=== PATIENT | female | born 1980 | race Caucasian/White ===

== ENCOUNTER 2016-07-25 15:13 | Emergency (ER) | payer MEDICAID ==
[2016-07-25] MEDS ORDERED: Ondansetron 4 MG/2 ML SDV IVPUSH ONE ×2 (15:32→16:40)
[2016-07-25] MEDS ORDERED: Sodium Chloride 0.9% 10 ML Syringe FLUSH PRN ×2 (15:32→15:42)
[2016-07-25] MEDS ORDERED: Sodium Chloride 0.9% 1,000 ML IV STA (15:32)
[2016-07-25] MEDS ORDERED: HYDROmorphone 1 MG/ML Syringe IVPUSH ONE ×2 (15:34→15:55)
[2016-07-25] MEDS ORDERED: Diatrizoate Meglumine/Diatrizoate Sodium 37% 120 ML Bottle PO ONE (15:42)
[2016-07-25] MEDS ORDERED: Iopamidol 612 MG/ML 150 ML Bottle IVPUSH ONE (15:42)
--- NOTE | 2016-07-25 16:57 | EDM.PDOC ---
ED HPI GENERAL MEDICAL PROBLEM - General Chief Complaint: Abdominal Pain Stated Complaint: ABDOMINAL PAIN Time Seen by Provider: 07/25/16 15:19 Source of Information: Reports: Patient History Limitations: Reports: No Limitations - History of Present Illness INITIAL COMMENTS - FREE TEXT/NARRATIVE: The patient presents with severe, sharp left sided abdominal pain. This started about an hour ago. She has nausea, vomiting and chills but no fever. She felt good today and had a normal bowel movement today. She still has a gallbladder but she has no appendix. She had a tubal ligation also. She has no chest pain or shortness of breath. She has no dysuria or diarrhea. Onset: Sudden Duration: Hour(s): (1) Location: Reports: Abdomen (left upper and lower abdomen) Quality: Reports: Sharp Severity: Severe Improves with: Reports: None Worsens with: Reports: None Associated Symptoms: Reports: Fever/Chills, Nausea/Vomiting. Denies: Cough, Shortness of Breath Left Abdominal Pain Score (Numeric/FACES): 10 - Related Data Allergies Allergy/AdvReac Type Severity Reaction Status Date / Time acetaminophen Allergy Hives Verified 07/25/16 15:22 amoxicillin Allergy Respiratory Verified 07/25/16 15:22 Depression Penicillins Allergy Anaphylactic Verified 07/25/16 15:22 Shock Home Meds: Home Meds lamoTRIgine [LaMICtal XR] 100 mg PO BID 05/20/14 [History] Tamsulosin HCl [Flomax] 0.4 mg PO DAILY #10 cap.er.24h 07/25/16 [Rx] oxyCODONE 5 mg PO Q6H PRN #20 tablet 07/25/16 [Rx] Past Medical History Other OB/BYN History: ovarian cyst Neurological History: Reports: Seizure - Past Surgical History Other Female Surgeries/Procedures: stent placement in ureter Social & Family History - Tobacco Use Smoking Status *Q: Current Every Day Smoker Years of Tobacco use: 10 Packs/Tins Daily: 0.5 Used Tobacco, but Quit: No Second Hand Smoke Exposure: No - Caffeine Use Caffeine Use: Reports: None - Alcohol Use Days Per Week of Alcohol Use: 1 Number of Drinks Per Day: 1 Total Drinks Per Week: 1 - Recreational Drug Use Recreational Drug Use: No ED ROS GENERAL - Review of Systems Review Of Systems: See Below Constitutional: Reports: Chills. Denies: Fever HEENT: Reports: No Symptoms Respiratory: Reports: No Symptoms Cardiovascular: Reports: No Symptoms Endocrine: Reports: No Symptoms GI/Abdominal: Reports: Abdominal Pain, Nausea, Vomiting. Denies: Diarrhea : Reports: No Symptoms Musculoskeletal: Reports: No Symptoms Skin: Reports: No Symptoms ED EXAM, GI/ABD - Physical Exam Exam: See Below Exam Limited By: No Limitations General Appearance: Alert, No Apparent Distress Ears: Normal External Exam Nose: Normal Inspection Head: Atraumatic, Normocephalic Neck: Normal Inspection Respiratory/Chest: No Respiratory Distress, Lungs Clear, Normal Breath Sounds Cardiovascular: Regular Rate, Rhythm, No Edema, No Murmur GI/Abdominal: Soft, No Organomegaly, No Mass, Tenderness (Moderate generalized tenderness) Course - Vital Signs Last Recorded V/S: Last Vital Signs Temp 96.7 F 07/25/16 15:18 Pulse 89 07/25/16 15:18 Resp 28 H 07/25/16 15:18 BP 128/94 H 07/25/16 15:18 Pulse Ox 97 07/25/16 15:18 - Orders/Labs/Meds Orders: Active Orders 24 hr Category Date Time Status Peripheral IV Care [RC] . DIRECTED Care 07/25/16 15:32 Active Sodium Chloride 0.9% [Saline Flush] Med 07/25/16 15:32 Active 10 ml FLUSH ASDIRECTED PRN Sodium Chloride 0.9% [Saline Flush] Med 07/25/16 15:42 Active 10 ml FLUSH ONETIME PRN ED Antiemetic Medication Reflex [OM.PC] Stat Oth 07/25/16 15:33 Ordered Peripheral IV Insertion Adult [OM.PC] Stat Oth 07/25/16 15:32 Ordered Medication Orders Sodium Chloride (Saline Flush) 10 ml FLUSH ASDIRECTED PRN PRN Reason: Keep Vein Open Last Admin: 07/25/16 15:49 Dose: 10 ml Sodium Chloride (Saline Flush) 10 ml FLUSH ONETIME PRN PRN Reason: IV FLUSH Last Admin: 07/25/16 17:12 Dose: 10 ml Labs: Laboratory Tests 07/25/16 07/25/16 07/25/16 Range/Units 15:30 15:30 15:30 WBC 13.83 H (3.98-10.04) K/mm3 RBC 4.79 (3.98-5.22) M/mm3 Hgb 14.2 (11.2-15.7) gm/L Hct 43.0 (34.1-44.9) % MCV 89.8 (79.4-94.8) fl MCH 29.6 (25.6-32.2) pg MCHC 33.0 (32.2-35.5) g/dl RDW Std Deviation 43.0 (36.4-46.3) fL Plt Count 421 H (182-369) K/mm3 MPV 9.9 (9.4-12.3) fl Neut % (Auto) 66.2 (34.0-71.1) % Lymph % (Auto) 17.4 L (19.3-51.7) % [place] % (Auto) 12.0 (4.7-12.5) % Eos % (Auto) 3.3 (0.7-5.8) Baso % (Auto) 0.6 (0.1-1.2) % Neut # (Auto) 9.15 H (1.56-6.13) K/mm3 Lymph # (Auto) 2.41 (1.18-3.74) K/mm3 [place] # (Auto) 1.66 H (0.24-0.36) K/mm3 Eos # (Auto) 0.46 H (0.04-0.36) K/mm3 Baso # (Auto) 0.08 (0.01-0.08) K/mm3 Manual Slide Review Normal smear Sodium 142 (136-145) mEq/L Potassium 4.0 (3.5-5.1) mEq/L Chloride 105 (98-107) mEq/L Carbon Dioxide 27 (21-32) mEq/L Anion Gap 14.0 (5-15) BUN 13 (7-18) mg/dL Creatinine 1.1 H (0.55-1.02) mg/dL Est Cr Clr Drug Dosing 69.23 mL/min Estimated GFR (MDRD) 57 (>60) mL/min BUN/Creatinine Ratio 11.8 L (14-18) Glucose 114 H (74-106) mg/dL Calcium 9.4 (8.5-10.1) mg/dL Total Bilirubin 0.4 (0.2-1.0) mg/dL AST 26 (15-37) U/L ALT 61 H (14-59) U/L Alkaline Phosphatase 97 (46-116) U/L Total Protein 7.7 (6.4-8.2) g/dl Albumin 4.0 (3.4-5.0) g/dl Globulin 3.7 gm/dL Albumin/Globulin Ratio 1.1 (1-2) Lipase 100 (73-393) U/L HCG, Qual Negative (NEGATIVE) Urine Color (Yellow) Urine Appearance (Clear) Urine pH (5.0-8.0) Ur Specific [place] (1.005-1.030) Urine Protein (Negative) Urine Glucose (UA) (Negative) Urine Ketones (Negative) Urine Occult Blood (Negative) Urine Nitrite (Negative) Urine Bilirubin (Negative) Urine Urobilinogen (0.2-1.0) Ur Leukocyte Esterase (Negative) Urine RBC (0-5) /hpf Urine WBC (0-5) /hpf Ur Epithelial Cells Ur Squamous Epith Cells (0-5) /hpf Urine Bacteria (FEW) /hpf Urine Mucus (FEW) /hpf 07/25/16 Range/Units 17:25 WBC (3.98-10.04) K/mm3 RBC (3.98-5.22) M/mm3 Hgb (11.2-15.7) gm/L Hct (34.1-44.9) % MCV (79.4-94.8) fl MCH (25.6-32.2) pg MCHC (32.2-35.5) g/dl RDW Std Deviation (36.4-46.3) fL Plt Count (182-369) K/mm3 MPV (9.4-12.3) fl Neut % (Auto) (34.0-71.1) % Lymph % (Auto) (19.3-51.7) % [place] % (Auto) (4.7-12.5) % Eos % (Auto) (0.7-5.8) Baso % (Auto) (0.1-1.2) % Neut # (Auto) (1.56-6.13) K/mm3 Lymph # (Auto) (1.18-3.74) K/mm3 [place] # (Auto) (0.24-0.36) K/mm3 Eos # (Auto) (0.04-0.36) K/mm3 Baso # (Auto) (0.01-0.08) K/mm3 Manual Slide Review Sodium (136-145) mEq/L Potassium (3.5-5.1) mEq/L Chloride (98-107) mEq/L Carbon Dioxide (21-32) mEq/L Anion Gap (5-15) BUN (7-18) mg/dL Creatinine (0.55-1.02) mg/dL Est Cr Clr Drug Dosing mL/min Estimated GFR (MDRD) (>60) mL/min BUN/Creatinine Ratio (14-18) Glucose (74-106) mg/dL Calcium (8.5-10.1) mg/dL Total Bilirubin (0.2-1.0) mg/dL AST (15-37) U/L ALT (14-59) U/L Alkaline Phosphatase (46-116) U/L Total Protein (6.4-8.2) g/dl Albumin (3.4-5.0) g/dl Globulin gm/dL Albumin/Globulin Ratio (1-2) Lipase (73-393) U/L HCG, Qual (NEGATIVE) Urine Color [place] H (Yellow) Urine Appearance Cloudy H (Clear) Urine pH 6.5 (5.0-8.0) Ur Specific [place] 1.015 (1.005-1.030) Urine Protein 2+ H (Negative) Urine Glucose (UA) Negative (Negative) Urine Ketones Negative (Negative) Urine Occult Blood 3+ H (Negative) Urine Nitrite Negative (Negative) Urine Bilirubin Negative (Negative) Urine Urobilinogen 0.2 (0.2-1.0) Ur Leukocyte Esterase Negative (Negative) Urine RBC >100 H (0-5) /hpf Urine WBC 0-5 (0-5) /hpf Ur Epithelial Cells Not Reportable Ur Squamous Epith Cells 5-10 H (0-5) /hpf Urine Bacteria Few (FEW) /hpf Urine Mucus Few (FEW) /hpf Meds: Medications Generic Name Dose Route Start Last Admin Trade Name Freq PRN Reason Stop Dose Admin Sodium Chloride 10 ml 07/25/16 15:32 07/25/16 15:49 Saline Flush FLUSH 10 ml ASDIRECTED PRN Administration Keep Vein Open Sodium Chloride 10 ml 07/25/16 15:42 07/25/16 17:12 Saline Flush FLUSH 10 ml ONETIME PRN Administration IV FLUSH Discontinued Medications Generic Name Dose Route Start Last Admin Trade Name Freq PRN Reason Stop Dose Admin Diatrizoate Meglum/Diatrizoate Sod 120 ml 07/25/16 15:42 07/25/16 17:10 Gastrografin 37% PO 07/25/16 15:43 90 ml ONETIME ONE Administration Hydromorphone HCl 1 mg 07/25/16 15:34 07/25/16 15:42 Dilaudid IVPUSH 07/25/16 15:35 1 mg ONETIME ONE Administration Hydromorphone HCl 1 mg 07/25/16 15:55 07/25/16 16:47 Dilaudid IVPUSH 07/25/16 15:56 1 mg ONETIME ONE Administration Sodium Chloride 1,000 mls @ 1,000 mls/hr 07/25/16 15:32 07/25/16 15:45 Normal Saline IV 07/25/16 16:31 1,000 mls/hr .BOLUS STA Administration Iopamidol 150 ml 07/25/16 15:42 07/25/16 17:10 Isovue-300 (61%) IVPUSH 07/25/16 15:43 125 ml ONETIME ONE Administration Ketorolac Tromethamine 30 mg 07/25/16 18:15 07/25/16 18:24 Toradol IVPUSH 07/25/16 18:16 30 mg ONETIME ONE Administration Ondansetron HCl 4 mg 07/25/16 15:32 07/25/16 15:40 Zofran IVPUSH 07/25/16 15:33 4 mg ONETIME ONE Administration Ondansetron HCl 4 mg 07/25/16 16:40 07/25/16 16:44 Zofran IVPUSH 07/25/16 16:41 4 mg ONETIME ONE Administration - Re-Assessments/Exams Free Text/Narrative Re-Assessment/Exam: 07/25/16 16:57 I ordered an IV NS 1L bolus, zofran 4mg IV, dilaudid 1mg IV, labs, UA and a CT of her abdomen and pelvis. 07/25/16 18:34 Her WBC was elevated at 13.83. Her creatinine was 1.1. Her ALT was slightly elevated at 61. He HCG was negative. Her UA shows no UTI but she did have blood. Her CT shows slightly diminished enhancement of the left kidney as compared to the right side. Left ureter is mildly dilated. Both these findings are caused by an obstructing distal left ureteral stone measuring between 5 and 6mm. Small calcified gallstones. Lack of contrast within the bladder on delayed images likely representing dehydration. I gave her some toradol 30mg IV. She feels better now. I will get her on something for pain and have her follow up with urology. Departure - Departure Time of Disposition: 18:40 Disposition: Home, Self-Care 01 Condition: good Clinical Impression: Ureteric colic, Renal colic on left side, Kidney stone on left side, Ureteral calculus, Gall stones - Discharge Information Prescriptions: Tamsulosin HCl [Flomax] 0.4 mg PO DAILY #10 cap.er.24h oxyCODONE 5 mg PO Q6H PRN #20 tablet PRN Reason: Pain Referrals: Mamadou Franklin MD [Physician] - 1 Week Forms: ED Department Discharge Additional Instructions: Drink plenty of fluids. Take the flomax daily. Take the oxycodone as needed for pain. Take motrin or aleve for pain also. Follow up with Dr Franklin. Please return if you are worse. - My Orders Last 24 Hours: My Active Orders 07/25/16 15:32 Peripheral IV Care [RC] . DIRECTED Sodium Chloride 0.9% [Saline Flush] 10 ml FLUSH ASDIRECTED PRN Peripheral IV Insertion Adult [OM.PC] Stat 07/25/16 15:33 ED Antiemetic Medication Reflex [OM.PC] Stat 07/25/16 15:42 Sodium Chloride 0.9% [Saline Flush] 10 ml FLUSH ONETIME PRN - Assessment/Plan Last 24 Hours: My Active Orders 07/25/16 15:32 Peripheral IV Care [RC] . DIRECTED Sodium Chloride 0.9% [Saline Flush] 10 ml FLUSH ASDIRECTED PRN Peripheral IV Insertion Adult [OM.PC] Stat 07/25/16 15:33 ED Antiemetic Medication Reflex [OM.PC] Stat 07/25/16 15:42 Sodium Chloride 0.9% [Saline Flush] 10 ml FLUSH ONETIME PRN
--- NOTE | 2016-07-25 17:38 | CT ---
CT abdomen and pelvis Technique: Multiple axial sections were obtained from above the dome of the diaphragm inferiorly through the pubic symphysis. Delayed images were also obtained through the bladder. Comparison: Previous CT abdomen and pelvis exam of 12/05/09. Findings: Very small nonobstructing stone is noted within the right kidney. Left kidney shows slightly diminished enhancement as compared to the right side. Right ureter is mildly prominent. Calcification is seen within the distal right ureter measuring about 5-6 mm which is compatible with an obstructing ureteral calculus. Delayed images shows no contrast within the bladder compatible with dehydration. Visualized lung bases show nothing acute. Liver and spleen appear within normal limits. Small calcified gallstones are seen within the gallbladder. Adrenal glands show no nodule. Pancreas is within normal limits. Aorta shows no aneurysmal dilatation. No retroperitoneal adenopathy or mesenteric abnormalities are seen. No pelvic mass or adenopathy is identified. Bone window settings were reviewed which appear within normal limits for the patient's age. No bowel dilatation is seen. Previous appendectomy is noted. Impression: 1. Slightly diminished enhancement of the left kidney as compared to the right side. Left ureter is mildly dilated. Both these findings are caused by an obstructing distal left ureteral stone measuring between 5 and 6 mm. 2. Small calcified gallstones. 3. Lack of contrast within the bladder on delayed images likely representing dehydration. 4. No additional abnormality is identified on CT study of abdomen and pelvis. Diagnostic code #3
[2016-07-25] MEDS ORDERED: Ketorolac 30 MG/ML SDV IVPUSH ONE (18:15)
[2016-07-25 19:03] VITALS: BP 137/87
== END 2016-07-25 18:57 | disposition home or self-care (01) ==
LOC: JD.ED 15:13
DX: N20.2 Calculus of kidney with calculus of ureter (principal); K80.20 Calculus of gallbladder without cholecystitis without obstruction; F17.210 Nicotine dependence, cigarettes, uncomplicated; Z88.0 Allergy status to penicillin; Z88.1 Allergy status to other antibiotic agents; Z79.899 Other long term (current) drug therapy; Z98.890 Other specified postprocedural states
CPT/HCPCS: 36415; 74177; 80053; 81001; 83690; 84703; 85025; 96361; 96374; 96375; 96376; 99284; J1170; J1885; J2405; J7040; J7050; Q9963; Q9967

== ENCOUNTER 2017-03-02 11:38 | Emergency (ER) | payer SELFPAY ==
[2017-03-02 12:03] VITALS: BP 132/100
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
== END 2017-03-02 12:54 | disposition home or self-care (01) ==
LOC: JD.ED 11:38
DX: F41.8 Other specified anxiety disorders (principal); F17.210 Nicotine dependence, cigarettes, uncomplicated; Z88.1 Allergy status to other antibiotic agents; Z88.0 Allergy status to penicillin; Z88.8 Allergy status to other drugs, medicaments and biological substances; Z79.899 Other long term (current) drug therapy
CPT/HCPCS: 99283; 99284

== ENCOUNTER 2017-03-17 18:48 | Emergency (ER) | payer SELFPAY ==
[2017-03-17 18:58] VITALS: BP 140/93
[2017-03-17] MEDS ORDERED: HYDROmorphone 1 MG/ML Syringe IVPUSH ONE ×2 (19:23→22:01)
[2017-03-17] MEDS ORDERED: Ondansetron 4 MG/2 ML SDV IVPUSH ONE (19:23)
--- NOTE | 2017-03-17 19:28 | EDM.PDOC ---
ED HPI GENERAL MEDICAL PROBLEM - General Chief Complaint: Flank Pain Time Seen by Provider: 03/17/17 19:08 Source of Information: Reports: Patient History Limitations: Reports: No Limitations - History of Present Illness INITIAL COMMENTS - FREE TEXT/NARRATIVE: The patient states that she has had low right flank pain for the past 2-3 days, made worse if she moves. She states that she developed gross hematuria this morning, then nausea and emesis around 14:30 to 15:00 this afternoon. She states that she had a temperature of 103 at 17:00, as measured by a digital oral thermometer. She denies having dysuria, but states that she has suprapubic pain whenever she urinates. No recent constipation or diarrhea. The patient states that she has had similar symptoms twice in the past, both due to kidney stones, both requiring laser surgery. The patient's last oral solid food was around noon today. The patient does not appear PCP. Her Neurologist is Dr. Gamez. Treatments [employer] REPRESENTATIVE: Reports: NSAIDS Right Flank Pain Score (Numeric/FACES): 9 - Related Data Allergies Allergy/AdvReac Type Severity Reaction Status Date / Time acetaminophen Allergy Hives Verified 03/17/17 18:56 amoxicillin Allergy Respiratory Verified 03/17/17 18:56 Depression Penicillins Allergy Anaphylactic Verified 03/17/17 18:56 Shock Home Meds: Home Meds ClonazePAM [KlonoPIN] 1 mg PO TID PRN 03/02/17 [History] Ondansetron [Zofran ODT] 1 tab PO Q8H PRN #10 tab.dis 03/17/17 [Rx] Sulfamethoxazole/Trimethoprim [Bactrim Ds Tablet] 1 tab PO Q12H #10 tablet 03/17 [Rx] lamoTRIgine [Lamictal] 100 mg PO DAILY 03/17/17 [History] Past Medical History 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 (See Below) Other OB/BYN History: ovarian cyst Neurological History: Reports: Seizure Psychiatric History: Reports: Bipolar - Past Surgical History HEENT Surgical History: Reports: Oral Surgery ([place] teeth extraction) GI Surgical History: Reports: Appendectomy Female Surgical History: Reports: Kidney stone extraction, Tubal Ligation Musculoskeletal Surgical History: Reports: Other (See Below) (Left elbow pinning ) Social & Family History - Tobacco Use Smoking Status *Q: Current Every Day Smoker Years of Tobacco use: 22 Packs/Tins Daily: 0.5 - Caffeine Use Caffeine Use: Reports: Coffee - Alcohol Use Alcohol Use History: Yes Days Per Week of Alcohol Use: 1 Number of Drinks Per Day: 1 Total Drinks Per Week: 1 Alcohol Use Frequency: Socially - Recreational Drug Use Recreational Drug Use: Yes Drug Use in Last 12 Months: Yes Recreational Drug Type: Reports: Marijuana/Hashish (recreationally) - Living Situation & Occupation Living situation: Reports: Single, Other (with roomates) 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) ED ROS GENERAL - Review of Systems Review Of Systems: See Below Constitutional: Reports: Fever HEENT: Reports: No Symptoms Respiratory: Reports: No Symptoms Cardiovascular: Reports: No Symptoms Endocrine: Reports: No Symptoms GI/Abdominal: Reports: Nausea, Vomiting : Reports: No Symptoms Musculoskeletal: Reports: Other (Body aches about one week ago) Skin: Reports: No Symptoms Neurological: Reports: No Symptoms Psychiatric: Reports: No Symptoms Hematologic/Lymphatic: Reports: No Symptoms Immunologic: Reports: No Symptoms ED EXAM, GENERAL - Physical Exam Exam: See Below Exam Limited By: No Limitations General Appearance: Alert, WD/WN, No Apparent Distress (initially talking on cellphone) Eye Exam: Bilateral Eye: Normal Inspection Ears: Normal External Exam, Hearing Grossly Normal Nose: Normal Inspection, No Blood Throat/Mouth: Normal Inspection, Normal Lips, Normal Voice, No Airway Compromise Head: Atraumatic, Normocephalic Neck: Normal Inspection, Full Range of Motion Respiratory/Chest: No Respiratory Distress, Lungs Clear, Normal Breath Sounds, No Accessory Muscle Use Cardiovascular: Normal Peripheral Pulses, Regular Rate, Rhythm, No Gallop, No JVD, No Murmur, No Rub Peripheral Pulses: 4+: Radial (L), Radial (R) GI/Abdominal: Normal Bowel Sounds, Soft, No Organomegaly, No Distention, No Abnormal Bruit, No Mass, Tender (Significant, generalized, non-focal) (Female) Exam: Deferred Rectal (Female) Exam: Deferred Back Exam: Normal Inspection, CVA Tenderness (L) (to percussion as well as palpation), CVA Tenderness (R) (to percussion as well as palpation), Decreased Range of Motion (pain with movement) Extremities: Normal Inspection, Normal Range of Motion, No Pedal Edema, Normal Capillary Refill Neurological: Alert, Oriented, Normal Cognition, No Motor/Sensory Deficits Psychiatric: Normal Affect Skin Exam: Warm, Dry, Intact, Normal Color, No Rash Course - Vital Signs Last Recorded V/S: Last Vital Signs Temp 36.7 C 03/17/17 18:56 Pulse 93 03/17/17 18:56 Resp 22 H 03/17/17 18:56 BP 140/93 H 03/17/17 18:56 Pulse Ox 98 03/17/17 18:56 - Orders/Labs/Meds Orders: Active Orders 24 hr Category Date Time Status Abdomen Pelvis w Cont [CT] Stat Exams 03/17/17 19:23 Taken CULTURE URINE [RM] Stat Lab 03/17/17 19:58 Received Sodium Chloride 0.9% [Normal Saline] 1,000 ml Med 03/17/17 19:30 Active IV ASDIRECTED Medication Orders Sodium Chloride (Normal Saline) 1,000 mls @ 150 mls/hr IV ASDIRECTED LORENA Last Admin: 03/17/17 19:39 Dose: 150 mls/hr Labs: Laboratory Tests 03/17/17 03/17/17 03/17/17 Range/Units 19:01 19:01 19:58 WBC 12.72 H (3.98-10.04) K/mm3 RBC 5.12 (3.98-5.22) M/mm3 Hgb 15.0 (11.2-15.7) gm/L Hct 45.9 H (34.1-44.9) % MCV 89.6 (79.4-94.8) fl MCH 29.3 (25.6-32.2) pg MCHC 32.7 (32.2-35.5) g/dl RDW Std Deviation 43.7 (36.4-46.3) fL Plt Count 435 H (182-369) K/mm3 MPV 10.7 (9.4-12.3) fl Neutrophils % (Manual) 48 (40-60) % Band Neutrophils % 0 (0-10) % Lymphocytes % (Manual) 39 (20-40) % Atypical Lymphs % 0 % Monocytes % (Manual) 9 (2-10) % Eosinophils % (Manual) 2 (0.7-5.8) % Basophils % (Manual) 2 H (0.1-1.2) Platelet Estimate Increased Plt Morphology Comment Normal RBC Morph Comment Normal Sodium 141 (136-145) mEq/L Potassium 3.9 (3.5-5.1) mEq/L Chloride 106 (98-107) mEq/L Carbon Dioxide 23 (21-32) mEq/L Anion Gap 15.9 H (5-15) BUN 6 L (7-18) mg/dL Creatinine 0.9 (0.55-1.02) mg/dL Est Cr Clr Drug Dosing 84.03 mL/min Estimated GFR (MDRD) > 60 (>60) mL/min BUN/Creatinine Ratio 6.7 L (14-18) Glucose 103 (74-106) mg/dL Calcium 9.4 (8.5-10.1) mg/dL Total Bilirubin 0.2 (0.2-1.0) mg/dL AST 16 (15-37) U/L ALT 26 (14-59) U/L Alkaline Phosphatase 118 H (46-116) U/L Total Protein 7.3 (6.4-8.2) g/dl Albumin 3.7 (3.4-5.0) g/dl Globulin 3.6 gm/dL Albumin/Globulin Ratio 1.0 (1-2) Lipase 159 (73-393) U/L Urine Color (Yellow) Urine Appearance (Clear) Urine pH (5.0-8.0) Ur Specific [place] (1.005-1.030) Urine Protein (Negative) Urine Glucose (UA) (Negative) Urine Ketones (Negative) Urine Occult Blood (Negative) Urine Nitrite (Negative) Urine Bilirubin (Negative) Urine Urobilinogen (0.2-1.0) Ur Leukocyte Esterase (Negative) Urine RBC (0-5) /hpf Urine WBC (0-5) /hpf Urine WBC Clumps (NOT SEEN) /hpf Ur Epithelial Cells (0-5) /hpf Urine Bacteria (FEW) /hpf Urine Mucus (FEW) /hpf Urine HCG, Qual Negative (NEGATIVE) 03/17/17 Range/Units 19:58 WBC (3.98-10.04) K/mm3 RBC (3.98-5.22) M/mm3 Hgb (11.2-15.7) gm/L Hct (34.1-44.9) % MCV (79.4-94.8) fl MCH (25.6-32.2) pg MCHC (32.2-35.5) g/dl RDW Std Deviation (36.4-46.3) fL Plt Count (182-369) K/mm3 MPV (9.4-12.3) fl Neutrophils % (Manual) (40-60) % Band Neutrophils % (0-10) % Lymphocytes % (Manual) (20-40) % Atypical Lymphs % % Monocytes % (Manual) (2-10) % Eosinophils % (Manual) (0.7-5.8) % Basophils % (Manual) (0.1-1.2) Platelet Estimate Plt Morphology Comment RBC Morph Comment Sodium (136-145) mEq/L Potassium (3.5-5.1) mEq/L Chloride (98-107) mEq/L Carbon Dioxide (21-32) mEq/L Anion Gap (5-15) BUN (7-18) mg/dL Creatinine (0.55-1.02) mg/dL Est Cr Clr Drug Dosing mL/min Estimated GFR (MDRD) (>60) mL/min BUN/Creatinine Ratio (14-18) Glucose (74-106) mg/dL Calcium (8.5-10.1) mg/dL Total Bilirubin (0.2-1.0) mg/dL AST (15-37) U/L ALT (14-59) U/L Alkaline Phosphatase (46-116) U/L Total Protein (6.4-8.2) g/dl Albumin (3.4-5.0) g/dl Globulin gm/dL Albumin/Globulin Ratio (1-2) Lipase (73-393) U/L Urine Color Yellow (Yellow) Urine Appearance Clear (Clear) Urine pH 6.0 (5.0-8.0) Ur Specific [place] > or = 1.030 (1.005-1.030) Urine Protein Negative (Negative) Urine Glucose (UA) Negative (Negative) Urine Ketones Negative (Negative) Urine Occult Blood Negative (Negative) Urine Nitrite Positive H (Negative) Urine Bilirubin Negative (Negative) Urine Urobilinogen 0.2 (0.2-1.0) Ur Leukocyte Esterase Trace H (Negative) Urine RBC 0-5 (0-5) /hpf Urine WBC 10-20 H (0-5) /hpf Urine WBC Clumps Rare (NOT SEEN) /hpf Ur Epithelial Cells 5-10 H (0-5) /hpf Urine Bacteria Moderate H (FEW) /hpf Urine Mucus Many H (FEW) /hpf Urine HCG, Qual (NEGATIVE) Meds: Medications Generic Name Dose Route Start Last Admin Trade Name Freq PRN Reason Stop Dose Admin Sodium Chloride 1,000 mls @ 150 mls/hr 03/17/17 19:30 03/17/17 19:39 Normal Saline IV 150 mls/hr ASDIRECTED LORENA Administration Discontinued Medications Generic Name Dose Route Start Last Admin Trade Name Freq PRN Reason Stop Dose Admin Diatrizoate Meglum/Diatrizoate Sod 90 ml 03/17/17 19:31 03/17/17 21:47 Gastrografin 37% PO 03/17/17 19:32 90 ml ONETIME ONE Administration Hydromorphone HCl 1 mg 03/17/17 19:23 03/17/17 19:36 Dilaudid IVPUSH 03/17/17 19:24 1 mg ONETIME ONE Administration Hydromorphone HCl 1 mg 03/17/17 22:01 03/17/17 22:11 Dilaudid IVPUSH 03/17/17 22:02 1 mg ONETIME ONE Administration Levofloxacin/Dextrose 750 mg/ 150 mls @ 100 mls/hr 03/17/17 20:53 03/17/17 21 :05 Premix IV 03/17/17 22:22 100 mls/hr ONETIME ONE Administration Iopamidol 100 ml 03/17/17 19:31 03/17/17 21:47 Isovue-300 (61%) IVPUSH 03/17/17 19:32 100 ml ONETIME ONE Administration Ondansetron HCl 4 mg 03/17/17 19:23 03/17/17 19:36 Zofran IVPUSH 03/17/17 19:24 4 mg ONETIME ONE Administration Sodium Chloride 10 ml 03/17/17 19:31 03/17/17 19:39 Saline Flush FLUSH 03/17/17 19:32 10 ml ONETIME ONE Administration - Re-Assessments/Exams Free Text/Narrative Re-Assessment/Exam: 03/17/17 19:26 The patient is presenting with right flank pain that she states is the same as 2 prior kidney stones, but her presentation is anything but that of a kidney stone. Her pain is made worse with any movement, she has significant generalized abdominal tenderness, and bilateral CVA tenderness, not only to percussion, but even to simple palpation. It is possible that the patient has a ureterolith, but with this examination, I am forced order a full abdominal workup that includes a CT scan with oral and IV contrast. 03/17/17 20:54 The patient's urinalysis, collected by quick catheter, is consistent with a UTI. I have ordered a urine culture. The CT scan will further elucidate if the patient has pyelonephritis, which current guidelines recommend treatment with Levaquin, versus cystitis, which could be treated with oral Bactrim. As I do not have the CT results at this time, however, I have ordered Levaquin 750 mg IV. Of note, the urinalysis is occult blood negative, with 0-5 RBCs, not consistent with a ureterolith. 03/17/17 23:12 CT of the abdomen and pelvis with IV contrast is read by [facility] as "No acute findings. Cholelithiasis." 03/17/17 23:18 Test results discussed with the patient. As above, the patient does not have a kidney stone. She has a UTI, but there is no evidence of her having pyelonephritis, therefore I will discharge her with e-prescriptions for Bactrim and Zofran. I will refer her to Dr. Hutchinson to follow-up this coming Wednesday. Departure - Departure Time of Disposition: 23:20 Disposition: Home, Self-Care 01 Condition: Good Clinical Impression: UTI (urinary tract infection) - Discharge Information Referrals: PCP,None [Primary Care Provider] - Emi Hutchinson MD [Physician] - Forms: ED Department Discharge Additional Instructions: You were seen in the emergency room for right flank pain, bloody urine, nausea, and vomiting. Workup in the ER included blood work, a urinalysis, a urine test, and a CT scan of your abdomen and pelvis. A urine culture was also ordered. Your workup found that you have a urinary tract infection, however, there is no evidence that this infection has spread up to your kidneys. You do not have a kidney stone. You were treated with the antibiotic Levaquin in the ER, however, going forward , prescriptions for the antibiotic Bactrim and the anti-nausea medicine Zofran have been sent to the [facility], [address]. Take one tablet of Bactrim every 12 hours, starting tomorrow morning, 2017. Finish the entire prescription unless told otherwise by Dr. Hutchinson. Dissolve one tablet of Zofran on your tongue up to every 8 hours, as needed for nausea/vomiting. Take [id number] ibuprofen, 2-3 tablets (400-600 mg) every 8 hours, as needed for discomfort. Stay adequately hydrated. Any fluid will do. Follow-up with Dr. Emi Hutchinson this coming 03/19/2017, to check on the urine culture results, to make sure that you are on the right antibiotic. If any other problems, please do not hesitate to return to the ER. - My Orders Last 24 Hours: My Active Orders 03/17/17 19:23 Abdomen Pelvis w Cont [CT] Stat 03/17/17 19:30 Sodium Chloride 0.9% [Normal Saline] 1,000 ml IV ASDIRECTED 03/17/17 19:58 CULTURE URINE [RM] Stat - Assessment/Plan Last 24 Hours: My Active Orders 03/17/17 19:23 Abdomen Pelvis w Cont [CT] Stat 03/17/17 19:30 Sodium Chloride 0.9% [Normal Saline] 1,000 ml IV ASDIRECTED 03/17/17 19:58 CULTURE URINE [RM] Stat
[2017-03-17] MEDS ORDERED: Sodium Chloride 0.9% 1,000 ML IV SCH (19:30)
[2017-03-17] MEDS ORDERED: Iopamidol 612 MG/ML 100 ML Bottle IVPUSH ONE (19:31)
[2017-03-17] MEDS ORDERED: Diatrizoate Meglumine/Diatrizoate Sodium 37% 120 ML Bottle PO ONE (19:31)
[2017-03-17] MEDS ORDERED: Sodium Chloride 0.9% 10 ML Syringe FLUSH ONE (19:31)
[2017-03-17] MEDS ORDERED: Levofloxacin/Dextrose 5%-Water 750 MG in Premix Bag 1 BAG IV ONE (20:53)
--- NOTE | 2017-03-18 06:27 | CT ---
CT abdomen and pelvis Technique: Multiple axial sections were obtained from above the dome of the diaphragm inferiorly to the pubic symphysis. Intravenous and oral contrast has been given. Delayed images were obtained through the bladder. Comparison: Prior CT exam of 07/25/16. Findings: Visualized lung bases show nothing acute. Liver shows no focal parenchymal abnormality. Spleen appears within normal limits. Calcified gallstones are seen. Adrenal glands show no nodule. Kidneys show symmetric contrast enhancement without hydronephrosis or mass. Pancreas appears normal. Aorta shows no aneurysmal dilatation. No retroperitoneal adenopathy or mesenteric abnormalities are seen. No pelvic mass or adenopathy is seen. Delayed images show contrast within the distal ureters and bladder. No bowel dilatation is seen. No findings of appendicitis are seen. Bone window settings were reviewed which appear within normal limits for the patient's age. Impression: 1. Calcified gallstones. This finding is seen on prior CT exam. 2. No additional abnormality is appreciated on CT study of the abdomen and pelvis. Diagnostic code #2 I agree with preliminary report issued by [employer] ([facility] preliminary report dictated on 03/17/17, 11:54 PM Central Time)
== END 2017-03-17 23:44 | disposition home or self-care (01) ==
LOC: JD.ED 18:48
DX: N39.0 Urinary tract infection, site not specified (principal); Z88.0 Allergy status to penicillin; Z88.1 Allergy status to other antibiotic agents; Z79.899 Other long term (current) drug therapy; F17.210 Nicotine dependence, cigarettes, uncomplicated
CPT/HCPCS: 36415; 74177; 80053; 81001; 81025; 83690; 85025; 87086; 87088; 87186; 96365; 96366; 96375; 96376; 99284; J1170; J1956; J2405; J7040; J7050; P9612; Q9963; Q9967

== ENCOUNTER 2018-05-05 19:15 | Emergency (ER) | payer SELFPAY ==
[2018-05-05 19:19] VITALS: BP 146/103
[2018-05-05] MEDS ORDERED: LORazepam 2 MG/ML SDV IVPUSH ONE (19:21)
[2018-05-05] MEDS ORDERED: Ondansetron 4 MG/2 ML SDV IVPUSH ONE (19:24)
[2018-05-05] MEDS ORDERED: HYDROmorphone 1 MG/ML Syringe IVPUSH ONE ×2 (19:24→20:09)
[2018-05-05] MEDS ORDERED: Dextrose 5%-0.9% NaCl 1,000 ML IV SCH (19:30)
--- NOTE | 2018-05-05 19:30 | EDM.PDOC ---
ED HPI GENERAL MEDICAL PROBLEM - General Chief Complaint: Neurological Problem Stated Complaint: [facility] Time Seen by Provider: 05/05/18 19:20 Source of Information: Reports: Patient, EMS History Limitations: Reports: No Limitations - History of Present Illness INITIAL COMMENTS - FREE TEXT/NARRATIVE: 38-year-old female presents to the ED after apparently having a seizure at an unknown location as the patient cannot remember where she was. She may have been outside as her upper torso and her hands are very cold to touch. At present she has quite a bad headache. Mild nausea. She doesn't feel like she got hurt from the seizure. . It's unclear if there were any witnesses to the seizure. She does have a seizure history with grand mal seizures for the last 9 years. . She is currently being transitioned off of Neurontin and onto Lamictal. This changes occurred over the last 8 weeks. Last seizure was approximately a month ago. At present she has a throbbing pounding headache. She states this is typical after having a seizure. Denies feeling like she bit her tongue hurt her teeth. She denies any loss of bowel or bladder control. Onset: Today Onset Date: 05/05/18 Onset Time: 18:35 Duration: Other (No one is here to verify that they witnessed her seizure and I don't have any report on how long it may have lasted.) Location: Reports: Other (On unknown generalized seizure with loss of consciousness. has no recollection of what is happened to her. The last thing she can remember is having a 2 whensurewhetherthisafternoon.) Quality: Reports: Other (Suspect generalized grand mal convulsion) Severity: Moderate Improves with: Reports: Other Worsens with: Reports: None (She is minimally postictal at the time of my examination.) Context: Reports: Other (Apparent grand mal convulsion with loss of consciousness. Patient is a seizure history.). Denies: Activity, Exercise, Lifting, Sick Contact, Trauma Associated Symptoms: Reports: Headaches, Malaise, Weakness. 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 below) (Generalized paramedics did not administer any medications.) Headache Pain Score (Numeric/FACES): 8 - Related Data Allergies Allergy/AdvReac Type Severity Reaction Status Date / Time acetaminophen Allergy Hives Verified 05/05/18 19:19 amoxicillin Allergy Respiratory Verified 05/05/18 19:19 Depression Penicillins Allergy Anaphylactic Verified 05/05/18 19:19 Shock Home Meds: Home Meds lamoTRIgine [Lamictal] 200 mg PO BID 03/17/17 [History] Past Medical History Genitourinary History: Reports: Renal Calculus 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 (See Below) Other SPRINKLER WORKER History: ovarian cyst Neurological History: Reports: Seizure Psychiatric History: Reports: Bipolar - Past Surgical History HEENT Surgical History: Reports: Oral Surgery ([place] teeth extraction) GI Surgical History: Reports: Appendectomy Female Surgical History: Reports: Kidney stone extraction, Tubal Ligation Musculoskeletal Surgical History: Reports: Other (See Below) (Left elbow pinning ) Social & Family History - Tobacco Use Smoking Status *Q: Current Every Day Smoker Years of Tobacco use: 15 Packs/Tins Daily: 0.5 - Caffeine Use Caffeine Use: Reports: Coffee - Recreational Drug Use Recreational Drug Use: Yes Recreational Drug Type: Reports: Marijuana/Hashish Recreational Drug Use Frequency: Weekly - Living Situation & Occupation Living situation: Reports: Single, Other (with roomates) 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 Denies: Fever, Chills, Fatigue, Night Sweats, Diaphoresis, Decreased Appetite, Weight Loss HEENT: Reports: No Symptoms Respiratory: Reports: No Symptoms Cardiovascular: Reports: No Symptoms Endocrine: Reports: Fatigue GI/Abdominal: Reports: No Symptoms : Reports: No Symptoms Musculoskeletal: Reports: Muscle Pain (Mild generalized muscle ache at this time ) Skin: Reports: No Symptoms Neurological: Reports: Headache (Headache described as 7 on a 10 generalized pressure discomfort) Psychiatric: Reports: No Symptoms Hematologic/Lymphatic: Reports: No Symptoms Immunologic: Reports: No Symptoms - Physical Exam Exam: See Below Exam Limited By: No Limitations General Appearance: Alert, WD/WN, Mild Distress Eye Exam: Bilateral Eye: Normal Fundi (No flame hemorrhages.), Normal Inspection , PERRL Throat/Mouth: Normal Inspection, Normal Lips, Normal Teeth, Normal Oropharynx. No: Evidence of Tongue Biting Head Exam: Atraumatic, Normocephalic, Other Neck: Normal Inspection (No outward signs of any head or facial trauma), Supple , Non-Tender, Full Range of Motion. No: Lymphadenopathy (L), Lymphadenopathy (R ) Respiratory/Chest: No Respiratory Distress, Lungs Clear, Normal Breath Sounds, No Accessory Muscle Use Cardiovascular: Normal Peripheral Pulses, Regular Rate, Rhythm, No Edema, No Gallop, No Murmur, No Rub GI/Abdominal: Normal Bowel Sounds, Soft, Non-Tender, No Organomegaly, No Abnormal Bruit, No Mass, Pelvis Stable, Other (Mildly obese.) Neuro Exam (Abbreviated): Alert, Oriented, CN II-XII Intact, Normal Cognition, No Motor/Sensory Deficits DTR: 0: Achilles (R), Achilles (L), 1+: Bicep (R), Bicep (L), Patella (R), Patella (L) Back Exam: Normal Inspection, Full Range of Motion. No: CVA Tenderness (L), CVA Tenderness (R) Extremities: Normal Inspection, Normal Range of Motion, Non-Tender, No Pedal Edema, Other (No evidence of extremity trauma. Note her feet are quite warm to palpation but her hands are very cold) Psychiatric: Normal Affect ( and she may have been outside when the seizure occurred.), Normal Mood Skin Exam: Warm, Dry, Intact, Normal Color, No Rash Course - Vital Signs Last Recorded V/S: Last Vital Signs Temp 35.7 C 05/05/18 19:17 Pulse 93 05/05/18 19:17 Resp 18 05/05/18 19:17 BP 146/103 H 05/05/18 19:17 Pulse Ox 100 05/05/18 19:17 - Orders/Labs/Meds Orders: Active Orders 24 hr Category Date Time Status LAMOTRIGINE, SERUM [REF] Stat Lab 05/05/18 19:30 Received Labs: Laboratory Tests 05/05/18 05/05/18 05/05/18 Range/Units 19:30 19:30 20:15 WBC 11.92 H (3.98-10.04) K/mm3 RBC 4.73 (3.98-5.22) M/mm3 Hgb 13.8 (11.2-15.7) gm/L Hct 42.6 (34.1-44.9) % MCV 90.1 (79.4-94.8) fl MCH 29.2 (25.6-32.2) pg MCHC 32.4 (32.2-35.5) g/dl RDW Std Deviation 41.9 (36.4-46.3) fL Plt Count 418 H (182-369) K/mm3 MPV 9.7 (9.4-12.3) fl Neutrophils % (Manual) 77 H (40-60) % Band Neutrophils % 0 (0-10) % Lymphocytes % (Manual) 18 L (20-40) % Atypical Lymphs % 0 % Monocytes % (Manual) 3 (2-10) % Eosinophils % (Manual) 2 (0.7-5.8) % Basophils % (Manual) 0 L (0.1-1.2) Platelet Estimate Adequate RBC Morph Comment Normal Sodium 144 (136-145) mEq/L Potassium 4.2 (3.5-5.1) mEq/L Chloride 107 (98-107) mEq/L Carbon Dioxide 29 (21-32) mEq/L Anion Gap 12.2 (5-15) BUN 13 (7-18) mg/dL Creatinine 1.0 (0.55-1.02) mg/dL Est Cr Clr Drug Dosing 74.90 mL/min Estimated GFR (MDRD) > 60 (>60) mL/min BUN/Creatinine Ratio 13.0 L (14-18) Glucose 96 (74-106) mg/dL Lactic Acid 2.3 H (0.4-2.0) mmol/L Calcium 9.4 (8.5-10.1) mg/dL Magnesium 1.9 (1.8-2.4) mg/dl Total Bilirubin 0.2 (0.2-1.0) mg/dL AST 17 (15-37) U/L ALT 24 (14-59) U/L Alkaline Phosphatase 96 (46-116) U/L Creatine Kinase 154 (26-192) U/L C-Reactive Protein 0.8 (<1.0) mg/dL Total Protein 7.1 (6.4-8.2) g/dl Albumin 3.6 (3.4-5.0) g/dl Globulin 3.5 gm/dL Albumin/Globulin Ratio 1.0 (1-2) Lipase 174 (73-393) U/L TSH 3rd Generation 1.513 (0.358-3.74) uIU/mL Meds: Medications Discontinued Medications Generic Name Dose Route Start Last Admin Trade Name Valentín PRN Reason Stop Dose Admin Hydromorphone HCl 0.5 mg 05/05/18 19:24 05/05/18 19:31 Dilaudid IVPUSH 05/05/18 19:25 0.5 mg ONETIME ONE Administration Hydromorphone HCl 0.5 mg 05/05/18 20:09 05/05/18 20:16 Dilaudid IVPUSH 05/05/18 20:10 0.5 mg ONETIME ONE Administration Dextrose/Sodium Chloride 1,000 mls @ 500 mls/hr 05/05/18 19:30 05/05/18 19:30 Dextrose 5%-Normal Saline IV 500 mls/hr ASDIRECTED LORENA Administration Lamotrigine 200 mg 05/05/18 21:00 Lamotrigine PO BID LORENA Lamotrigine 200 mg 05/05/18 20:49 05/05/18 20:54 Lamotrigine PO 05/05/18 20:50 200 mg ONETIME ONE Administration Lorazepam 1 mg 05/05/18 19:21 05/05/18 19:31 Ativan IVPUSH 05/05/18 19:22 1 mg ONETIME ONE Administration Ondansetron HCl 4 mg 05/05/18 19:24 05/05/18 19:31 Zofran IVPUSH 05/05/18 19:25 4 mg ONETIME ONE Administration - Radiology Interpretation Free Text/Narrative:: 38-year-old female presents the ED after apparently having a seizure at an unknown location. Paramedics never defined called in the 911 alert and where the patient was at the time the seizure occurred and how long it may have lasted. Patient has a seizure history. She reports that Neurontin was being discontinued over the last 8 weeks and she was being introduced to Lamictal. Last seizure was about a month ago. She is now off the Neurontin completely. Examination shows no outward signs of the extremity back head or neck trauma. He does have a bad headache and slight nausea. Will be given Zofran 4 mg IV and Dilaudid 0.5 mg IV for headache relief. Routine labs to be obtained and I will order I will order a Lamictal level for send out evaluation. Patient will also be given 1 mg of Ativan at this time. - Re-Assessments/Exams Free Text/Narrative Re-Assessment/Exam: 05/05/18 20:09 2 friends are in the room and they did not witness the seizure activity either. 11 left in the dark as to the nature of the seizure and how long it may have lasted. still has quite a pounding throbbing headache and I will repeat Dilaudid 0.5 mg IV. She does see Dr. Seymour neurologist in [place] and I will therefore consult neurology services at [facility] to discuss options in terms of adding a second antiseizure medication to her regimen. There appears to be some degree of noncompliance with the current Lamictal tablets which may be of course contributing to her breakthrough seizures. 05/05/18 20:25 Labs reveal a slightly elevated white count of 11.92. 77% neutrophils with no band cells reported. Hemoglobin is 13.8. Hematocrit is 42.6. Platelet count 418,000. Sodium 144 with a potassium of 4.2. Bicarb is 107 with a bicarbonate 29. Anion gap is 12.2. BUN is 13 with a creatinine of 1.0. GFR is greater than 60. Glucose was 96 with a calcium of 9.4. Magnesium is normal at 1.9. Liver function is normal. CPK is 154 C-reactive protein is 0.8. Total protein is 7.1 with an albumin fraction 3.6. Lipase 174 TSH is 1.5. 05/05/18 20:29 did discuss the case with Dr. Warren neurology services at [facility]. He suggest that we could increase her Lamictal to 250 mg twice a day. I think I would prefer to adopt a wait and see approach and see how her Lamictal level returns. Since she's not all that compliant probably staying compliant might keep her seizure disorder in control without need for a dosage increase. 05/05/18 20:37 the die try out worker that was on scene and witness the seizure arrived in the ED. States she was out in the driveway with her boyfriend which explains why her upper torso and hands are so cold on examination. Witness the seizure which lasted about 30 seconds. He states her eyes rolled back into her head. She was eased to the ground did not fall. She suffered no injuries. He states that she had mild clonic activity and both of her upper extremities not sure about the lower extremities that lasted for only a short period of time. She was not postictal for very long. Therefore one questions whether she has a true seizure disorder or pseudoseizures disorder. At this time to await her serum Lamictal levels before instituting any increase in dosage. I will have her follow-up with Dr. Seymour her neurologist when sitting she can get an appointment. Departure - Departure Time of Disposition: 20:39 Disposition: Home, Self-Care 01 Condition: Fair Clinical Impression: Breakthrough seizure - Discharge Information *PRESCRIPTION DRUG MONITORING PROGRAM REVIEWED*: Not Applicable *COPY OF PRESCRIPTION DRUG MONITORING REPORT IN PATIENT AUDIE: Not Applicable Instructions: Seizure, Adult Referrals: PCP,None [Primary Care Provider] - Forms: ED Department Discharge Additional Instructions: Evaluation the emergency room today in regards to a witnessed partial complex seizure occurred outside apparently while you were speaking with her boyfriend in a local home driveway. Seizure lasted approximately 30-35 seconds. There was mild clonic activity of both upper extremities with transient loss of consciousness suggesting complex partial seizure. All of the lab work done through the ED tonight was normal. As you admitted you are perhaps not always compliant with your current medication dosages. He of course it is very important to take Lamictal twice daily to obtain a constant level of the medication your bloodstream to prevent seizures from occurring. I did send off a blood Lamictal level which will take about 2 days to come back. We could increase the Lamictal to 250 mg twice daily if you continue to have breakthrough seizures and are compliant with your current treatment regimen. Suggest follow-up with Dr. Gamez your neurologist in [place] within the next 5-7 days ideally. - My Orders Last 24 Hours: My Active Orders 05/05/18 19:30 LAMOTRIGINE, SERUM [REF] Stat - Assessment/Plan Last 24 Hours: My Active Orders 05/05/18 19:30 LAMOTRIGINE, SERUM [REF] Stat
[2018-05-05] MEDS ORDERED: lamoTRIgine 100 MG Tab PO ONE (20:49)
[2018-05-05] MEDS ORDERED: lamoTRIgine 100 MG Tab PO SCH (21:00)
== END 2018-05-05 20:55 | disposition home or self-care (01) ==
LOC: JD.ED 19:15
DX: G40.909 Epilepsy, unspecified, not intractable, without status epilepticus (principal); F17.210 Nicotine dependence, cigarettes, uncomplicated; Z79.899 Other long term (current) drug therapy; Z88.0 Allergy status to penicillin; Z88.1 Allergy status to other antibiotic agents; Z88.8 Allergy status to other drugs, medicaments and biological substances
CPT/HCPCS: 36415; 80053; 80175; 82550; 83605; 83690; 83735; 84443; 85007; 85027; 86140; 96361; 96374; 96375; 96376; 99284; A9270; J1170; J2060; J2405; J7042; 99285

== ENCOUNTER 2018-07-14 16:48 | Emergency (ER) | payer MEDICAID, OTHER ==
[2018-07-14 17:00] VITALS: BP 146/100
[2018-07-14] MEDS ORDERED: Sodium Chloride 0.9% 10 ML Syringe FLUSH PRN (17:24)
[2018-07-14] MEDS ORDERED: LORazepam 2 MG/ML SDV IVPUSH ONE (17:24)
[2018-07-14] MEDS ORDERED: Lactated Ringers 1,000 ML IV ONE ×2 (17:24→19:52)
--- NOTE | 2018-07-14 19:31 | EDM.PDOC ---
ED HPI GENERAL MEDICAL PROBLEM - General Chief Complaint: Neurological Problem Stated Complaint: [facility] Time Seen by Provider: 07/14/18 16:55 Source of Information: Reports: Patient, EMS History Limitations: Reports: No Limitations - History of Present Illness INITIAL COMMENTS - FREE TEXT/NARRATIVE: 38-year-old female is brought in by [facility] for possible seizure. Patient reports she murmurs hearing the phone ring, she got up from a chair to get the phone when she had either seizure or syncopal episode. Unclear which. She has a history of seizures. She is complaining at this time of severe headache and facial pain. She also says severe right shoulder pain and pain to her right side of her chest and right abdomen. Unclear exactly how long she was out for. She states that the police were "baning on her door for 45 minutes ". She has no tongue biting or loss of bowel or bladder incontinence. Patient reports that was recently diagnosed with acute kidney failure. She states that she had dialysis on Wednesday as scheduled dialysis again tomorrow, Wednesday, here in [place]. Reports her urologist is Dr. Galvan. She cannot recall the name of her statistical assistant at this time. Patient reports she has been taking her lamotrigine as prescribed. Right Shoulder Pain Score (Numeric/FACES): 8 Head Pain Score (Numeric/FACES): 10 Bilateral Eye Pain Score (Numeric/FACES): 8 - Related Data Allergies Allergy/AdvReac Type Severity Reaction Status Date / Time acetaminophen Allergy Hives Verified 07/14/18 17:00 amoxicillin Allergy Respiratory Verified 07/14/18 17:00 Depression Penicillins Allergy Anaphylactic Verified 07/14/18 17:00 Shock Home Meds: Home Meds lamoTRIgine [Lamictal] 200 mg PO DAILY 03/17/17 [History] Past Medical History Genitourinary History: Reports: Acute Renal Failure, Renal Calculus RECRUITMENT INTERNSHIP History: Reports: Other (See Below) Other RECRUITMENT INTERNSHIP History: ovarian cyst Neurological History: Reports: Seizure Psychiatric History: Reports: Bipolar - Past Surgical History HEENT Surgical History: Reports: Oral Surgery GI Surgical History: Reports: Appendectomy Female Surgical History: Reports: Kidney stone extraction, Tubal Ligation Social & Family History - Family History Family Medical History: Noncontributory - Tobacco Use Smoking Status *Q: Current Every Day Smoker Years of Tobacco use: 10 Packs/Tins Daily: 1 - Caffeine Use Caffeine Use: Reports: Coffee - Living Situation & Occupation Living situation: Reports: Single, Other (with roomates) 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 Denies: Stool Incontinence : Denies: Incontinence Musculoskeletal: Reports: Neck Pain, Shoulder Pain (right). Denies: Back Pain Neurological: Reports: Headache, Seizure (vs, syncope), Syncope (vs. seizure) - Physical Exam Exam: See Below Exam Limited By: No Limitations General Appearance: Alert, WD/WN, No Apparent Distress, Obese Eye Exam: Bilateral Eye: EOMI, Normal Inspection, PERRL Ears: Normal External Exam Nose: Normal Inspection Throat/Mouth: Normal Inspection, Normal Lips, Normal Voice, No Airway Compromise Head Exam: Atraumatic, Normocephalic Neck: Other (patient in c-collar placed by EMS) Respiratory/Chest: No Respiratory Distress, Lungs Clear, Normal Breath Sounds, Other (tenderness to the right lateral chest ribs 5-10) Cardiovascular: Normal Peripheral Pulses, Regular Rate, Rhythm, No Murmur GI/Abdominal: Normal Bowel Sounds, Soft, No Distention, Tender (minimal tenderness to the right flank) Neuro Exam (Abbreviated): Alert, Oriented, Normal Cognition. No: Inattentive, Confused, Slow to Respond Extremities: Normal Inspection (no obvious deformities), Other (tenderness to the right shoulder) Psychiatric: Normal Affect, Normal Mood Skin Exam: Warm, Dry, Normal Color. No: Ecchymosis EKG INTERPRETATION EKG Date: 07/14/18 Time: 18:18 Rhythm: NSR Rate (Beats/Min): 100 [place]: Normal P-Wave: Present QRS: Normal ST-T: Normal QT: Normal EKG Interpretation Comments: Sinus tach at 100 bpm. No acute changes. Reviewed by myself and Dr. Abraham. Course - Vital Signs Last Recorded V/S: Last Vital Signs Temp 98.4 F 07/14/18 16:55 Pulse 108 H 07/14/18 16:55 Resp 18 07/14/18 16:55 BP 146/100 H 07/14/18 16:55 Pulse Ox 98 07/14/18 16:55 - Orders/Labs/Meds Labs: Laboratory Tests 07/14/18 07/14/18 07/14/18 Range/Units 18:30 18:30 18:30 WBC Cancelled Corrected WBC Cancelled RBC Cancelled Hgb Cancelled Hct Cancelled MCV Cancelled MCH Cancelled MCHC Cancelled RDW Std Deviation Cancelled Plt Count Cancelled MPV Cancelled Neutrophils % (Manual) Cancelled Band Neutrophils % Cancelled Lymphocytes % (Manual) Cancelled Atypical Lymphs % Cancelled Immat Monocytes % (Man) Cancelled Monocytes % (Manual) Cancelled Eosinophils % (Manual) Cancelled Basophils % (Manual) Cancelled Metamyelocytes % Cancelled Myelocytes % Cancelled Promyelocytes % Cancelled Blast Cells % Cancelled Plasma Cell % (Manual) Cancelled Immature Gran # Cancelled Absolute Neutrophils Cancelled Absolute Seg Neuts Cancelled Band Neutrophils # Cancelled Lymphocytes # (Manual) Cancelled Monocytes # (Manual) Cancelled Eosinophils # (Manual) Cancelled Basophils # (Manual) Cancelled Absolute Metamyelocyte Cancelled Absolute Myelocytes Cancelled Absolute Promyelocytes Cancelled Absolute Plasma Cells Cancelled Nucleated RBCs Cancelled Differential Comment Cancelled Hypersegmented Neuts Cancelled Atypical Lymphocytes Cancelled Vacuolated Monocytes Cancelled Absolute Blast Cells Cancelled Toxic Granulation Cancelled Dohle Bodies Cancelled Pelger-Huet Cells Cancelled Megakaryocytic Frags Cancelled Tanya Rods Cancelled WBC Morphology Comment Cancelled Platelet Estimate Cancelled Clumped Platelets Cancelled Giant Platelets Cancelled Plt Morphology Comment Cancelled Polychromasia Cancelled Hypochromasia Cancelled Poikilocytosis Cancelled Basophilic Stippling Cancelled Anisocytosis Cancelled Microcytosis Cancelled Macrocytosis Cancelled Spherocytes Cancelled Pappenheimer Bodies Cancelled Sickle Cells Cancelled Target Cells Cancelled Tear Drop Cells Cancelled Ovalocytes Cancelled Stomatocytes Cancelled Helmet Cells Cancelled Moore-Kinney Bodies Cancelled [place] Cancelled [place] Cells Cancelled Elliptocytes Cancelled Acanthocytes (Spur) Cancelled Rouleaux Cancelled Hemoglobin C Crystals Cancelled Schistocytes Cancelled RBC Morph Comment Cancelled Smear Path Review Cancelled Alexis Bodies Cancelled Sodium 139 (136-145) mEq/L Potassium 4.4 (3.5-5.1) mEq/L Chloride 104 (98-107) mEq/L Carbon Dioxide 26 (21-32) mEq/L Anion Gap 13.4 (5-15) BUN 11 (7-18) mg/dL Creatinine 1.1 H (0.55-1.02) mg/dL Est Cr Clr Drug Dosing TNP Estimated GFR (MDRD) 56 (>60) mL/min BUN/Creatinine Ratio 10.0 L (14-18) Glucose 105 (74-106) mg/dL Calcium 9.1 (8.5-10.1) mg/dL Magnesium 1.6 L (1.8-2.4) mg/dl Total Bilirubin 0.3 (0.2-1.0) mg/dL AST 17 (15-37) U/L ALT 29 (14-59) U/L Alkaline Phosphatase 94 (46-116) U/L Total Protein 6.4 (6.4-8.2) g/dl Albumin 3.3 L (3.4-5.0) g/dl Globulin 3.1 gm/dL Albumin/Globulin Ratio 1.1 (1-2) Lipase (73-393) U/L HCG, Qual (NEGATIVE) Urine Opiates Screen (SEVICE=768) Ur Buprenorphine Scrn (CUTOFF=10) Ur Oxycodone Screen (QWB3NE=853) Urine Methadone Screen (DHJKRT=021) Ur Propoxyphene Screen (WCKSHM=735) Ur Barbiturates Screen (GMIOEP=057) Lamotrigine (2.0-20.0) ug/mL Ur Tricyclics Screen (KGJLWJ=700) Ur Phencyclidine Scrn (CUTOFF=25) Ur Amphetamine Screen (QGIIZW=992) U Methamphetamines Scrn (GWNGKA=863) U Benzodiazepines Scrn (UVFKIL=911) U Cocaine Metab Screen (GFMGBF=247) U Marijuana (THC) Screen (CUTOFF=50) Ethyl Alcohol 0.00 (0.00) gm% Slides for Path Review Cancelled 07/14/18 07/14/18 07/14/18 Range/Units 18:30 18:30 18:30 WBC Corrected WBC RBC Hgb Hct MCV MCH MCHC RDW Std Deviation Plt Count MPV Neutrophils % (Manual) Band Neutrophils % Lymphocytes % (Manual) Atypical Lymphs % Immat Monocytes % (Man) Monocytes % (Manual) Eosinophils % (Manual) Basophils % (Manual) Metamyelocytes % Myelocytes % Promyelocytes % Blast Cells % Plasma Cell % (Manual) Immature Gran # Absolute Neutrophils Absolute Seg Neuts Band Neutrophils # Lymphocytes # (Manual) Monocytes # (Manual) Eosinophils # (Manual) Basophils # (Manual) Absolute Metamyelocyte Absolute Myelocytes Absolute Promyelocytes Absolute Plasma Cells Nucleated RBCs Differential Comment Hypersegmented Neuts Atypical Lymphocytes Vacuolated Monocytes Absolute Blast Cells Toxic Granulation Dohle Bodies Pelger-Huet Cells Megakaryocytic Frags Tanya Rods WBC Morphology Comment Platelet Estimate Clumped Platelets Giant Platelets Plt Morphology Comment Polychromasia Hypochromasia Poikilocytosis Basophilic Stippling Anisocytosis Microcytosis Macrocytosis Spherocytes Pappenheimer Bodies Sickle Cells Target Cells Tear Drop Cells Ovalocytes Stomatocytes Helmet Cells Moore-Kinney Bodies [place] Rasheed Cells Elliptocytes Acanthocytes (Spur) Rouleaux Hemoglobin C Crystals Schistocytes RBC Morph Comment Smear Path Review Alexis Bodies Sodium (136-145) mEq/L Potassium (3.5-5.1) mEq/L Chloride (98-107) mEq/L Carbon Dioxide (21-32) mEq/L Anion Gap (5-15) BUN (7-18) mg/dL Creatinine (0.55-1.02) mg/dL Est Cr Clr Drug Dosing Estimated GFR (MDRD) (>60) mL/min BUN/Creatinine Ratio (14-18) Glucose (74-106) mg/dL Calcium (8.5-10.1) mg/dL Magnesium (1.8-2.4) mg/dl Total Bilirubin (0.2-1.0) mg/dL AST (15-37) U/L ALT (14-59) U/L Alkaline Phosphatase (46-116) U/L Total Protein (6.4-8.2) g/dl Albumin (3.4-5.0) g/dl Globulin gm/dL Albumin/Globulin Ratio (1-2) Lipase 125 (73-393) U/L HCG, Qual Negative (NEGATIVE) Urine Opiates Screen (PHAWQM=141) Ur Buprenorphine Scrn (CUTOFF=10) Ur Oxycodone Screen (CKZ5YM=200) Urine Methadone Screen (MWYRTO=758) Ur Propoxyphene Screen (ONARTR=014) Ur Barbiturates Screen (LEODUG=618) Lamotrigine None detected (2.0-20.0) ug/mL Ur Tricyclics Screen (UTBZOA=412) Ur Phencyclidine Scrn (CUTOFF=25) Ur Amphetamine Screen (RJFVVZ=964) U Methamphetamines Scrn (KUDXNF=994) U Benzodiazepines Scrn (SGEUSQ=826) U Cocaine Metab Screen (ENDADI=316) U Marijuana (THC) Screen (CUTOFF=50) Ethyl Alcohol (0.00) gm% Slides for Path Review 07/14/18 07/14/18 Range/Units 18:46 20:00 WBC 14.40 H Corrected WBC RBC 4.70 Hgb 13.6 Hct 42.7 MCV 90.9 MCH 28.9 MCHC 31.9 L RDW Std Deviation 42.8 Plt Count 376 H MPV 10.0 Neutrophils % (Manual) 68 H Band Neutrophils % 0 Lymphocytes % (Manual) 20 Atypical Lymphs % 3 Immat Monocytes % (Man) Monocytes % (Manual) 6 Eosinophils % (Manual) 2 Basophils % (Manual) 1 Metamyelocytes % Myelocytes % Promyelocytes % Blast Cells % Plasma Cell % (Manual) Immature Gran # Absolute Neutrophils Absolute Seg Neuts Band Neutrophils # Lymphocytes # (Manual) Monocytes # (Manual) Eosinophils # (Manual) Basophils # (Manual) Absolute Metamyelocyte Absolute Myelocytes Absolute Promyelocytes Absolute Plasma Cells Nucleated RBCs Differential Comment Hypersegmented Neuts Atypical Lymphocytes Vacuolated Monocytes Absolute Blast Cells Toxic Granulation Dohle Bodies Pelger-Huet Cells Megakaryocytic Frags Tanya Rods WBC Morphology Comment Platelet Estimate Adequate Clumped Platelets Giant Platelets Plt Morphology Comment Polychromasia Hypochromasia Poikilocytosis Basophilic Stippling Anisocytosis Microcytosis Macrocytosis Spherocytes Pappenheimer Bodies Sickle Cells Target Cells Tear Drop Cells Ovalocytes Stomatocytes Helmet Cells Moore-Kinney Bodies [place] Cells Elliptocytes Acanthocytes (Spur) Rouleaux Hemoglobin C Crystals Schistocytes RBC Morph Comment Normal Smear Path Review Alexis Bodies Sodium (136-145) mEq/L Potassium (3.5-5.1) mEq/L Chloride (98-107) mEq/L Carbon Dioxide (21-32) mEq/L Anion Gap (5-15) BUN (7-18) mg/dL Creatinine (0.55-1.02) mg/dL Est Cr Clr Drug Dosing Estimated GFR (MDRD) (>60) mL/min BUN/Creatinine Ratio (14-18) Glucose (74-106) mg/dL Calcium (8.5-10.1) mg/dL Magnesium (1.8-2.4) mg/dl Total Bilirubin (0.2-1.0) mg/dL AST (15-37) U/L ALT (14-59) U/L Alkaline Phosphatase (46-116) U/L Total Protein (6.4-8.2) g/dl Albumin (3.4-5.0) g/dl Globulin gm/dL Albumin/Globulin Ratio (1-2) Lipase (73-393) U/L HCG, Qual (NEGATIVE) Urine Opiates Screen Negative (LHEBWQ=894) Ur Buprenorphine Scrn Negative (CUTOFF=10) Ur Oxycodone Screen Negative (RUD9TZ=461) Urine Methadone Screen Negative (UIUNHX=810) Ur Propoxyphene Screen Negative (WKRZEZ=436) Ur Barbiturates Screen Negative (FMQURZ=164) Lamotrigine (2.0-20.0) ug/mL Ur Tricyclics Screen Negative (CDGASI=013) Ur Phencyclidine Scrn Negative (CUTOFF=25) Ur Amphetamine Screen Negative (XNDBZU=826) U Methamphetamines Scrn Negative (HZFPXB=715) U Benzodiazepines Scrn Negative (WYQJRU=213) U Cocaine Metab Screen Negative (PMQVZO=496) U Marijuana (THC) Screen Negative (CUTOFF=50) Ethyl Alcohol (0.00) gm% Slides for Path Review Meds: Medications Discontinued Medications Generic Name Dose Route Start Last Admin Trade Name Freq PRN Reason Stop Dose Admin Hydromorphone HCl 1 mg 07/14/18 19:54 07/14/18 20:06 Dilaudid IVPUSH 07/14/18 19:55 1 mg ONETIME ONE Administration Lactated Ringer's 1,000 mls @ 999 mls/hr 07/14/18 17:24 07/14/18 18:13 Ringers, Lactated IV 07/14/18 18:24 999 mls/hr .BOLUS ONE Administration Lactated Ringer's 1,000 mls @ 999 mls/hr 07/14/18 19:52 07/14/18 20:04 Ringers, Lactated IV 07/14/18 20:52 999 mls/hr .BOLUS ONE Administration Lorazepam 1 mg 07/14/18 17:24 07/14/18 18:13 Ativan IVPUSH 07/14/18 17:25 1 mg ONETIME ONE Administration Sodium Chloride 10 ml 07/14/18 17:24 07/14/18 18:14 Saline Flush FLUSH 10 ml ASDIRECTED PRN Administration Keep Vein Open - Radiology Interpretation Free Text/Narrative:: CT cervical spine Technique: Multiple axial sections of the cervical spine were obtained. Reconstructed coronal and sagittal images were reviewed. Comparison: No prior CT cervical spine exam. Limitations: Artifact is noted within the mid and lower cervical spine due to patient body habitus causing photon attenuation. Findings: Moderate disc space narrowing is noted at C5-6 with anterior osteophytes and mild posterior osteophytes. Moderate disc space narrowing noted at C6-7 with mild anterior osteophytes. Other disc spaces are maintained. Mild posterior osteophytes are noted at C3-4. No bony central or bony neural foraminal stenosis is seen. No abnormal subluxation is seen. Slight degenerative spurring is noted within the uncovertebral joints at C5-6 and C2-3. Impression: 1. Degenerative change as noted above. Nothing acute is appreciated. Head CT Technique: Multiple axial sections through the brain were obtained. Intravenous contrast was not utilized. Comparison: No prior intracranial imaging Findings: Artifact is noted within the mid and base cuts. Within this limitation, no evidence of intracranial hemorrhage is seen. No abnormal parenchymal densities are seen. Ventricles along with basal cisterns and sulci over the convexities are within normal limits. Bone window settings were reviewed which shows no acute calvarial abnormality. Impression: 1. Artifact within the mid and base cuts. Within this limitation, nothing acute is appreciated on noncontrast head CT study. CT facial bones Technique: Multiple axial sections through the face were obtained. Reconstructed coronal and sagittal images were obtained. Findings: Paranasal sinuses are clear. No mucosal thickening or air-fluid levels. Right and left globes are symmetric. No retrobulbar are abnormality is seen. Extraocular muscles and optic nerves are symmetric. No facial bone fracture is identified. Dental caries appears to be present. Impression: 1. Dental caries appears to be present. 2. Nothing acute is seen on CT study of the facial structures. Xray of the right shoulder shows no acute fractures or dislocations. Formal read pending. 2 view chest xray shows no acute intrathoracic process. Formal read pending. Xray of the lumbar spine shows no acute fractures. Formal read pending. Xrya of the right hip and pelvis sows no acute fractures. Formal read pending. - Re-Assessments/Exams Free Text/Narrative Re-Assessment/Exam: 07/14/18 20:54 Lab initially reported the patient's CBC incorrectly, reports she was quite anemic with a hgb in the 8. Patient reports she has been told she has been anemic in the past. We then attempted to get records on the patient's most recent labs from [place]. She reports she was admitted to one of the hospitals there earlier this week. We have been unable to find any record that she was recently admitted or that she has had dialysis at either hospital. We have also searched under her and maiden names. Her corrected labs show no need for dialysis and no anemia. I have reviewed the labs and imaging with the patient. She then complained of low back and hip pain. Xrays were taken and these were unremarkable. has come to the ER to take her, she has warrants out for her arrest. apparently went to her apartment to serve her when she had a "seizure". Review of her records indicate this occurred last time she was served as well. She is threatening to call her employment law attorney as she states she was mistreated by and is concerned she will not get dialysis in correction. At this time she has had a complete work-up for her injuries. Lamotrigiene level was sent off as last time it was undetectable. She reports she is taking it as prescribed. Will discharge her home, however, is here to take her on her warrants. I see no reason at this time why she would require dialysis and see no reason she can no t go to correction. I strongly suspect she is malingering. Her parents have been in the room with her since entering the ER. Departure - Departure Time of Disposition: 21:00 Disposition: Home, Self-Care 01 Condition: Good Clinical Impression: Low back pain - Discharge Information *PRESCRIPTION DRUG MONITORING PROGRAM REVIEWED*: No *COPY OF PRESCRIPTION DRUG MONITORING REPORT IN PATIENT AUDIE: No Referrals: PCP,Unknown [Primary Care Provider] - Forms: ED Department Discharge Additional Instructions: You were given medication the other can affect your ability to drive and operate machinery. You cannot drive or operate machinery for the next 12 hours. May use [id number] Tylenol as needed for pain. Recommend using ice to sore areas. Follow-up with your primary care provider and your neurologist as needed for further management of your seizures. Please return the ER for symptoms change or worsen.
[2018-07-14] MEDS ORDERED: HYDROmorphone 1 MG/ML Syringe IVPUSH ONE (19:54)
--- NOTE | 2018-07-14 19:57 | CT ---
Head CT Technique: Multiple axial sections through the brain were obtained. Intravenous contrast was not utilized. Comparison: No prior intracranial imaging Findings: Artifact is noted within the mid and base cuts. Within this limitation, no evidence of intracranial hemorrhage is seen. No abnormal parenchymal densities are seen. Ventricles along with basal cisterns and sulci over the convexities are within normal limits. Bone window settings were reviewed which shows no acute calvarial abnormality. Impression: 1. Artifact within the mid and base cuts. Within this limitation, nothing acute is appreciated on noncontrast head CT study. Diagnostic code #2
--- NOTE | 2018-07-14 19:57 | CT ---
CT facial bones Technique: Multiple axial sections through the face were obtained. Reconstructed coronal and sagittal images were obtained. Findings: Paranasal sinuses are clear. No mucosal thickening or air-fluid levels. Right and left globes are symmetric. No retrobulbar are abnormality is seen. Extraocular muscles and optic nerves are symmetric. No facial bone fracture is identified. Dental caries appears to be present. Impression: 1. Dental caries appears to be present. 2. Nothing acute is seen on CT study of the facial structures. Diagnostic code #3
--- NOTE | 2018-07-14 20:00 | CT ---
CT cervical spine Technique: Multiple axial sections of the cervical spine were obtained. Reconstructed coronal and sagittal images were reviewed. Comparison: No prior CT cervical spine exam. Limitations: Artifact is noted within the mid and lower cervical spine due to patient body habitus causing photon attenuation. Findings: Moderate disc space narrowing is noted at C5-6 with anterior osteophytes and mild posterior osteophytes. Moderate disc space narrowing noted at C6-7 with mild anterior osteophytes. Other disc spaces are maintained. Mild posterior osteophytes are noted at C3-4. No bony central or bony neural foraminal stenosis is seen. No abnormal subluxation is seen. Slight degenerative spurring is noted within the uncovertebral joints at C5-6 and C2-3. Impression: 1. Degenerative change as noted above. Nothing acute is appreciated. Diagnostic code #2
--- NOTE | 2018-07-15 09:02 | CR ---
Pelvis and right hip: AP view of the pelvis was obtained as well as AP and frog-leg lateral views of the right hip. Comparison: No prior pelvis or hip exam. Joint spaces within both hips are preserved. Sacroiliac joints are within normal limits. No fracture or other bony abnormality is seen. Impression: 1. No abnormality is identified on AP pelvis or on two-view right hip exam. Diagnostic code #1
--- NOTE | 2018-07-15 09:03 | CR ---
Right shoulder: Three views of the right shoulder were obtained. Comparison: No prior shoulder exam. Slight joint space narrowing is noted within the acromioclavicular joint. Minimal deformity is noted within the acromion process at the acromioclavicular joint likely representing old injury. No acute fracture, dislocation or other bony abnormality is seen. Impression: 1. Findings suspicious for old healed injury within the acromioclavicular joint as noted above. 2. Nothing acute is seen. Diagnostic code #2
--- NOTE | 2018-07-15 09:04 | CR ---
Chest: Two views of the chest were obtained. Comparison: No prior chest imaging was available. Heart size and mediastinum are normal. Lungs are clear with no acute parenchymal change. Mild degenerative change is scattered within the thoracic spine. Impression: 1. Nothing acute is appreciated on two-view chest x-ray. Diagnostic code #1
--- NOTE | 2018-07-15 09:11 | CR ---
Lumbar spine: AP and lateral views of the lumbar spine were obtained. Comparison: No previous lumbar spine exam. Disc space narrowing is noted at L5-S1 which is moderate in severity. Other disc spaces are preserved. Minimal scattered endplate osteophytes are noted anteriorly. Pedicles are intact. Transverse and spinous processes are intact. Sacroiliac joints are within normal limits. Impression: 1. Mild degenerative change as noted above. Nothing acute is identified. Diagnostic code #2
== END 2018-07-14 21:20 | disposition home or self-care (01) ==
LOC: JD.ED 16:48
DX: M54.5 Low back pain (principal); F31.9 Bipolar disorder, unspecified; F17.210 Nicotine dependence, cigarettes, uncomplicated; Z88.8 Allergy status to other drugs, medicaments and biological substances; Z88.0 Allergy status to penicillin; Z88.1 Allergy status to other antibiotic agents; Z79.899 Other long term (current) drug therapy
CPT/HCPCS: 36415; 70450; 70486; 71046; 72100; 72125; 73030; 73502; 80053; 80175; 80306; 83690; 83735; 84703; 85007; 85027; 93005; 96361; 96374; 96375; 99284; G0480; J1170; J2060; J7120; 93010

== ENCOUNTER 2023-06-29 07:53 | Emergency (ER) | payer MEDICAID ==
[2023-06-29] MEDS: HYDROmorphone 1 MG/ML Syringe IM ONE (08:33)
[2023-06-29] MEDS: Ketorolac 60 MG/2 ML SDV IM ONE (08:33)
[2023-06-29 10:37] VITALS: BP 162/115; PULSE 98
== END 2023-06-29 09:03 | disposition home or self-care (01) ==
LOC: JD.ED 07:53
DX: K04.7 Periapical abscess without sinus (principal); Z90.49 Acquired absence of other specified parts of digestive tract; Z79.899 Other long term (current) drug therapy; Z88.0 Allergy status to penicillin; Z88.6 Allergy status to analgesic agent
CPT/HCPCS: 96372; 99283; J1170; J1885